=== PATIENT | female | born 1970 | race Caucasian/White ===

== ENCOUNTER 2016-05-30 13:30 | Emergency (ER) | payer OTHER ==
[~2016-05-30] VITALS: Wt 75.0 kg
[~2016-05-30 13:30] MED LIST: DICY10CA60 PO; ONDA4TAB35 PO
[2016-05-30] MEDS ORDERED: PROM5SYR2 PO (15:21)
[2016-05-30] MEDS ORDERED: ACET500C5 PO (15:21)
--- NOTE | 2016-05-30 15:23 | ERD ---
ER Documentation Chief Complaint Date/Time DATE: 05/30/16 TIME: 15:22 Chief Complaint FEVER AND SORE THROAT FOR THE PAST FEW DAYS HPI This 38-year-old female complains of fever, sore throat and cough for last 2 days. She has no vomiting, diarrhea, neck stiffness, rashes, shortness breath or chest pain. ROS All systems reviewed and are negative except as per history of present illness. Medications Home Meds Active Scripts Promethazine HCl/Codeine (Prometh-Codein 6.25-10 mg/5 ml) 5 Ml Syrup, 5 ML PO QID for 4 Days 6 OZ Prov:NACHO DAMON MD 05/30/16 Acetaminophen* (Tylophen*) 500 Mg Capsule, 1 CAP PO Q6H Y for PAIN AND OR ELEVATED TEMP, #15 CAP Prov:NACHO DAMON MD 05/30/16 Dicyclomine Hcl* (Bentyl*) 10 Mg Capsule, 10 MG PO QID Y for PAIN, #20 CAP Prov:CANDIDO BYNUM MD 11/25/14 Ondansetron Hcl* (Zofran* ODT) 4 mg -ODT Tab.disper, 4 MG PO Q6 Y for NAUSEA AND /OR VOMITING, #30 TAB Prov:CANDIOD BYNUM MD 11/25/14 Allergies Allergies: Coded Allergies: No Known Allergy (Unverified , 11/25/14) PMhx/Soc History of Surgery: Yes (CHOLYCYSTECTOMY 2005) Anesthesia Reaction: No Hx Neurological Disorder: No Hx Respiratory Disorders: No Hx Cardiac Disorders: No Hx Psychiatric Problems: No Hx Miscellaneous Medical Probl: Yes (DM) Hx Alcohol Use: No Hx Substance Use: No Hx Tobacco Use: No Smoking Status: Never smoker Physical Exam Vitals Vital Signs Date Time Temp Pulse Resp B/P Pulse Ox O2 Delivery O2 Flow Rate FiO2 05/30/16 13:48 98.0 90 20 128/61 99 Physical Exam Const: [] Alert, [id number] per Head: Atraumatic Eyes: Normal Conjunctiva ENT: Normal External Ears, Nose and Mouth. Oropharynx normal. Neck: Full range of motion..~ No meningismus. Resp: Clear to auscultation bilaterally Cardio: Regular rate and rhythm, no murmurs Abd: Soft, non tender, non distended. Normal bowel sounds Skin: No petechiae or rashes Back: No midline or flank tenderness Ext: No cyanosis, or edema Neur: Awake and alert Psych: Normal Mood and Affect Procedures/MDM This patient presents with URI symptoms for last 2 days. She also has a viral URI. Signs and symptoms not consistent with pneumonia, acute abdomen, sepsis, meningitis, respiratory distress. She will treated with promethazine with codeine and ibuprofen and observation at home. The patient was stable with no new complaints during the ER course. Clinically, there is no current evidence to suggest meningitis, sepsis, acute abdomen, pneumonia, acute coronary syndrome , pulmonary embolism, or any other emergent condition appearing to require further evaluation or hospitalization. The patient should certainly return for any new or worsening symptoms per the aftercare instructions. They should otherwise follow-up with her primary care doctor for reevaluation this week. Departure Diagnosis: Primary Impression: Fever Fever type: unspecified Qualified Code: R50.9 - Fever, unspecified fever cause Additional Impression: Upper respiratory infection URI type: unspecified URI Qualified Code: J06.9 - Upper respiratory tract infection, unspecified type Condition: Stable Patient Instructions: Fever Control (Child), Uri, Viral, No Abx (Adult) Additional Instructions: probablamente un virus que dura 2-4 perry. cheque otro francis el proximo mikaela para mas simptomas- vomito, dolor, cruz, problemas con respirando, o con cid doctor primario. NACHO DAMON MD May 30, 2016 15:22
== END 2016-05-30 15:34 | disposition home or self-care (01) ==
LOC: FTE 13:30
DX: R50.9 Fever, unspecified (principal); J06.9 Acute upper respiratory infection, unspecified; E11.9 Type 2 diabetes mellitus without complications
CPT/HCPCS: 99283

== ENCOUNTER 2016-06-16 22:17 | Emergency (ER) | payer OTHER ==
[~2016-06-16] VITALS: Ht 152.4 cm; Wt 75.5 kg
[~2016-06-16 22:17] MED LIST changes: +ACET500C5 PO; +PROM5SYR2 PO
[2016-06-16 23:26] VITALS: Ht 152.4 cm; Wt 75.5 kg
--- NOTE | 2016-06-17 02:37 | ERD ---
ER Documentation Chief Complaint Date/Time DATE: 06/17/16 TIME: 02:[address], cough and colds x1 wk HPI 46-year-old female presents with chief complaint of sore throat 3 days. Patient states that she has difficulty swallowing secondary to pain. She was seen here last week for viral illness that included symptoms such as cough and rhinorrhea. However she states that her cough has since subsided and now her only symptom is a sore throat and fever. She denies nausea, vomiting, ear pain, and neck stiffness. She has been doing warm salt water gargles at home however states does not alleviate her symptoms. She denies recent travel. Sick contacts in her home include her daughter who also complains of a a sore throat. ROS All systems reviewed and are negative except as per history of present illness. Medications Home Meds Active Scripts Ibuprofen* (Motrin*) 600 Mg Tab, 600 MG PO Q6, #30 TAB Prov:Nikki Oro PA-C 06/17/16 Penicillin V Potassium* (Penicillin V K*) 500 Mg Tab, 500 MG PO BID for 10 Days , #20 TAB Prov:Nikki Oro PA-C 06/17/16 Promethazine HCl/Codeine (Prometh-Codein 6.25-10 mg/5 ml) 5 Ml Syrup, 5 ML PO QID for 4 Days 6 OZ Prov:NACHO DAMON MD 05/30/16 Acetaminophen* (Tylophen*) 500 Mg Capsule, 1 CAP PO Q6H Y for PAIN AND OR ELEVATED TEMP, #15 CAP Prov:NACHO DAMON MD 05/30/16 Dicyclomine Hcl* (Bentyl*) 10 Mg Capsule, 10 MG PO QID Y for PAIN, #20 CAP Prov:CANDIDO BYNUM MD 11/25/14 Ondansetron Hcl* (Zofran* ODT) 4 mg -ODT Tab.disper, 4 MG PO Q6 Y for NAUSEA AND /OR VOMITING, #30 TAB Prov:CANDIDO BYNUM MD 11/25/14 Allergies Allergies: Coded Allergies: No Known Allergy (Unverified , 11/25/14) PMhx/Soc History of Surgery: Yes (CHOLYCYSTECTOMY 2004) Anesthesia Reaction: No Hx Neurological Disorder: No Hx Respiratory Disorders: No Hx Cardiac Disorders: No Hx Psychiatric Problems: No Hx Miscellaneous Medical Probl: Yes (DM) Hx Alcohol Use: No Hx Substance Use: No Hx Tobacco Use: No Physical Exam Vitals Vital Signs Date Time Temp Pulse Resp B/P Pulse Ox O2 Delivery O2 Flow Rate FiO2 06/16/16 23:26 96.5 96 18 126/56 99 Physical Exam GENERAL: Non-toxic. No apparent signs of distress. HEENT: Atraumatic. Bilateral eyes are PERRL EOM intact. Normal conjunctiva, no injection. No eyelid or lower eyelid swelling noted. Ears: Normal tympanic membrane, no erythema or bulging. No ear canal swelling. No ear discharge. Nose : no nasal discharge. Throat: Oropharynx normal. Tongue pink and moist. Bilateral tonsillar edema and erythema with mild exudate.. No lymphadenopathy. LUNGS: Clear to auscultation. No accessory muscle use. No wheezing, no crackles. No signs or symptoms of respiratory distress. HEART: Regular rate and rhythm. No murmurs, clicks, rubs or gallops. NEURO: Cranial nerves are grossly intact. Normal mental status for age. Good muscle tone. SKIN: There is no apparent rash, petechiae, erythema or swelling. Good skin turgor. Procedures/MDM Patient presents with chief complaint of sore throat and fever. States that she is seen here recently for URI type symptoms however she states that her cough and rhinorrhea subsided. Says that her throat pain is aggravated by swallowing, it is very painful for her to swallow liquids. She has tried warm. Salt water gargles at home which have not given her any relief. On exam she has mild bilateral tonsillar edema, erythema with mild exudate. Uvula is midline, no trismus, no pooling of secretions. Patient has no vocal changes. She has no lymphadenopathy. However since she is only complaining of a sore throat and no longer has a cough I will be treating her for possible bacterial pharyngitis. She denies any recent antibiotic use. At this time I have low suspicion for epiglottitis, peritonsillar abscess, retro -parapharyngeal abscess, meningitis, and sepsis. I'll be prescribing penicillin VK 10 days, and ibuprofen 600 mg for inflammation and pain. Patient is stable for discharge and outpatient management. Advised to follow-up with PCP in one to 2 days. Departure Diagnosis: Primary Impression: Sore throat Additional Impression: Pharyngitis Pharyngitis/tonsillitis etiology: unspecified etiology Qualified Code: J02.9 - Pharyngitis, unspecified etiology Nikki Oro PA-C Jun 17, 2016 02:37
[2016-06-17] MEDS ORDERED: PEN500 PO (02:39)
[2016-06-17] MEDS ORDERED: IBUP-1542 PO (02:39)
== END 2016-06-17 02:53 | disposition home or self-care (01) ==
LOC: FTE 22:17
DX: J02.9 Acute pharyngitis, unspecified (principal); E11.9 Type 2 diabetes mellitus without complications
CPT/HCPCS: 99283